=== PATIENT | female | born 1990 | race Hispanic/Latino ===

== ENCOUNTER 2016-08-02 22:17 | Inpatient (IN) ==
[2016-08-02] MEDS ORDERED: ZOFRAN IV PRN (22:24)
[2016-08-02] MEDS ORDERED: STADOL IV PRN ×2 (22:24)
[2016-08-02] MEDS ORDERED: AMBIEN PO PRN (22:24)
[2016-08-02] MEDS ORDERED: PEPCID IV PRN (22:24)
[2016-08-02] MEDS ORDERED: PEPCID PO PRN (22:24)
[2016-08-02] MEDS ORDERED: KEFZOL 1 GM/D5W 1 GM/50 ML IVPB IV PRN (22:24)
[2016-08-02] MEDS ORDERED: TYLENOL PO PRN (22:24)
[2016-08-02] MEDS ORDERED: BRETHINE SUBQ PRN (22:24)
[2016-08-02] MEDS: LR 1,000 ML IV ONE (23:50)
[2016-08-03] MEDS ORDERED: CYTOTEC VAG ONE
[2016-08-03 00:06] LABS: MANUAL DIFF NEEDED? NO
[2016-08-03 00:08] LABS: BASO% 0.2 % (0.0-0.8); EOS# 0.11 X1000 (0.0-0.7); EOS% 1.8 % (0.0-10.0); HEMATOCRIT 33.7 % (37.0-47.0); HEMOGLOBIN 11.4 g/dL (12.0-16.0); IMM GRAN# 0.02 X1000 (0.0-0.04); IMM GRAN% 0.3 % (0.0-0.5); LYMPH# 2.44 X1000 (1.2-3.4); LYMPH% 39.7 % (20.5-51.1); MCH 30.4 PG (27-31); MCHC 33.8 g/dL (33-37); MCV 89.9 FL (81-99); MONO# 0.41 X1000 (0.11-0.59); MONO% 6.7 % (1.7-9.3); MPV 10.3 FL (7.4-10.4); NEUT% 51.3 % (42.2-75.2); PLT 287 X1000 (130-400); RBC 3.75 XMIL (4.2-5.4)
[2016-08-03] MEDS: CYTOTEC VAG SCH ×3 (04:26→12:23)
[2016-08-03] MEDS: LR 1,000 ML IV ONE ×2 (06:32→13:34)
[2016-08-03] MEDS ORDERED: PITOCIN 30 UNITS/LR 30 UNITS/500 ML IV.SOLN IV SCH (08:00)
[2016-08-03] MEDS: STADOL IV PRN ×3 (10:15→14:56)
[2016-08-03] MEDS ORDERED: XYLOCAINE-MPF 1% ONE (15:26)
[2016-08-03] MEDS ORDERED: MINERAL OIL ONE (15:26)
[2016-08-03] MEDS ORDERED: NS 1,000 ML IV ONE (15:56)
[2016-08-03] MEDS ORDERED: D5 LR 1,000 ML IV SCH (15:56)
[2016-08-03] MEDS ORDERED: PITOCIN 20 UNITS/LR 20 UNITS/1,000 ML IV.SOLN ONE (17:07)
[2016-08-03] MEDS ORDERED: AMBIEN PO PRN (19:01)
[2016-08-03] MEDS ORDERED: PERI MEDS (DERMOPLAST/NUPERCAINAL/TUCKS) MISC PRN (19:01)
[2016-08-03] MEDS ORDERED: HYDROXYZINE PO PRN (19:01)
[2016-08-03] MEDS ORDERED: BENADRYL PO PRN (19:01)
[2016-08-03] MEDS ORDERED: PITOCIN 30 UNITS/LR 30 UNITS/500 ML IV.SOLN IV ONE (19:01)
[2016-08-03] MEDS ORDERED: HYDROXYZINE IM PRN (19:01)
[2016-08-03] MEDS ORDERED: MINERAL OIL PO PRN (19:01)
[2016-08-03] MEDS ORDERED: PITOCIN IM PRN (19:01)
[2016-08-03] MEDS ORDERED: XYLOCAINE-MPF 1% INJ PRN (19:01)
[2016-08-03] MEDS ORDERED: CYTOTEC PO PRN (19:01)
[2016-08-03] MEDS ORDERED: BENADRYL IV PRN (19:01)
[2016-08-03] MEDS ORDERED: PERCOCET-10 PO PRN (19:01)
[2016-08-03] MEDS ORDERED: PITOCIN 20 UNITS/LR 20 UNITS/1,000 ML IV.SOLN IV SCH (19:01)
[2016-08-03] MEDS: CLINDAMYCIN 900 MG/NS 900 MG/50 ML IVPB IV SCH (20:52)
[2016-08-03] MEDS: GENTAMICIN 80 MG/NS 80 MG/50 ML IVPB IV SCH (20:52)
[2016-08-03] MEDS: PERICOLACE PO SCH (20:53)
[2016-08-04] MEDS: MOTRIN PO PRN ×3 (00:36→16:53)
[2016-08-04] MEDS: PERCOCET-5 PO PRN ×3 (00:42→16:53)
[2016-08-04] MEDS: CLINDAMYCIN 900 MG/NS 900 MG/50 ML IVPB IV SCH ×2 (04:28→12:40)
[2016-08-04] MEDS: GENTAMICIN 80 MG/NS 80 MG/50 ML IVPB IV SCH ×2 (04:28→12:39)
[2016-08-04 06:08] LABS: MANUAL DIFF NEEDED? NO
[2016-08-04 06:34] LABS: BASO% 0.1 % (0.0-0.8); EOS# 0.07 X1000 (0.0-0.7); EOS% 0.7 % (0.0-10.0); HEMATOCRIT 25.2 % (37.0-47.0); HEMOGLOBIN 8.4 g/dL (12.0-16.0); IMM GRAN# 0.02 X1000 (0.0-0.04); IMM GRAN% 0.2 % (0.0-0.5); LYMPH# 2.78 X1000 (1.2-3.4); LYMPH% 26.2 % (20.5-51.1); MCH 29.8 PG (27-31); MCHC 33.3 g/dL (33-37); MCV 89.4 FL (81-99); MONO# 0.62 X1000 (0.11-0.59); MONO% 5.8 % (1.7-9.3); MPV 10.4 FL (7.4-10.4); PLT 283 X1000 (130-400); RBC 2.82 XMIL (4.2-5.4)
[2016-08-04] MEDS: PRECARE PO SCH (08:57)
[2016-08-04 12:27] LABS: HEPATITIS B SURFACE ANTIGEN SEE COMMENTS
[2016-08-04] MEDS: FERROUS SULFATE PO SCH ×2 (12:46→21:10)
--- NOTE | 2016-08-04 20:23 | OPERATIVE NOTE ---
PROCEDURE DATE: 08/03/2016 ADMISSION DIAGNOSIS: A 26-year-old, 5, para 4-0-0-4 at 37 weeks and 1 day with gestational diabetes and cholestasis of . DELIVERY DATE: 08/03/2016 DELIVERING PHYSICIAN: Dr. Brianda Mauro. ANESTHESIA: None. FINDINGS: A 7 pound 1 ounce male with Apgars 8 and 9. Retained placenta that was manually removed. COMPLICATIONS: None DELIVERING SUMMARY: This 26-year-old, 5 para 4-0-0-4 underwent induction of labor with subsequent spontaneous vaginal delivery at 37 weeks and 2 days. The was noted to have a nuchal cord x1 which was clamped and cut at the perineum. The was delivered atraumatically and placed upon the mother's abdomen with the pediatric team in attendance. Cord blood was then obtained. The placenta was then removed manually and was manually from the uterus. It was delivered intact. No lacerations were noted. Patient and were both stable in the delivery room. cc: MD ALVARO Moore
[2016-08-04] MEDS: PERICOLACE PO SCH (20:50)
--- NOTE | 2016-08-04 20:59 | OB/GYN PROGRESS NOTE ---
Progress Note OB - . Patient Problems: Current Active Problems Problem Status Onset Cholestasis during Acute Gestational diabetes Acute OB Progress Note: Vital Signs - 24 hr 08/03/16 21:15 08/03/16 22:15 08/03/16 23:15 Temperature 99.5 F Pulse Rate 102 H 86 89 Respiratory Rate 18 18 18 Blood Pressure 93/52 135/77 110/66 O2 Sat by Pulse Oximetry 99 99 99 08/04/16 00:00 08/04/16 04:00 08/04/16 08:00 Temperature 98.6 F 98.6 F 97.8 F Pulse Rate 104 H 77 87 Respiratory Rate 18 18 15 Blood Pressure 100/53 90/50 84/61 O2 Sat by Pulse Oximetry 99 99 100 08/04/16 12:00 08/04/16 16:00 08/04/16 20:48 Temperature 97.7 F 97.3 F L Pulse Rate 82 84 81 Respiratory Rate 16 16 18 Blood Pressure 92/59 106/54 98/48 O2 Sat by Pulse Oximetry 98 Laboratory Results - last 24 hr 08/02/16 08/04/16 08/04/16 23:50 05:10 06:34 WBC 10.60 RBC 2.82 L Hgb 8.4 L D Hct 25.2 L D MCV 89.4 MCH 29.8 MCHC 33.3 RDW Std Deviation 12.6 Plt Count 283 MPV 10.4 Immature Gran % (Auto) 0.2 Neut % (Auto) 67.0 Lymph % (Auto) 26.2 [place] % (Auto) 5.8 Eos % (Auto) 0.7 Baso % (Auto) 0.1 Immature Gran # (Auto) 0.02 Neut # (Auto) 7.10 H Lymph # (Auto) 2.78 [place] # (Auto) 0.62 H Eos # (Auto) 0.07 Baso # (Auto) 0.01 POC Glucose 93 D Hep Bs Antigen SEE COMMENTS Patient is without complaint. Ambulating and voiding without difficult. Tolerating diet. Reports minimal bleeding. Pain well controlled. . Exam Gen: NAD, alert Abd: soft, nontender, fundus firm and 1 finger breadth below umbilicus Pelvis: minimal lochia rubra Ext: no edema, nontender, Giorgi's- A/P: 26yo who is PPD#1 s/p with manual removal of placenta, iron deficiency anemia -continue routine care -encourage ambulation -continue PO pain meds -ferrous sulfate BID -discontinue gent/clinda after 3 doses completed -dispo: home in AM Brianda Mauro MD [employer]
[2016-08-05 07:38] VITALS: BP 99/48
[2016-08-05] MEDS: FERROUS SULFATE PO SCH (08:40)
[2016-08-05] MEDS: PRECARE PO SCH (08:40)
--- NOTE | 2016-09-22 17:18 | DISCHARGE SUMMARY ---
ADMISSION DATE: 08/02/2016 DISCHARGE DATE: 08/05/2016 PROCEDURES: Spontaneous vaginal delivery. ADMISSION DIAGNOSIS: A 26-year-old, -0-0-4 at 37 weeks and 1 day, with gestational diabetes and cholestasis of . DISCHARGE DIAGNOSIS: Status post spontaneous vaginal delivery of a 7 pound 1 ounce male with Apgars 8 and 9. DELIVERING PHYSICIAN: Dr. Brianda Mauro. HOSPITAL COURSE: This 26-year-old, -0-0-4 underwent induction of labor for cholestasis of with subsequent spontaneous vaginal delivery at 37 weeks and 2 days. The patient's hospital course was unremarkable and she was discharged on PPD#2. The patient's discharge glucose was 93 and hemoglobin and hematocrit was 8.4 and 25.2. DISCHARGE EXAM: General: No acute distress. Alert and oriented. Abdomen: Soft, nontender. Fundus firm and one fingerbreadth below the umbilicus. Pelvic: Minimal lochia rubra. Extremities: No edema. Nontender. Homans sign negative. DISCHARGE INSTRUCTIONS: Patient may continue regular diet. Patient to have nothing per vagina. DISCHARGE MEDICATIONS: Ferrous sulfate, ibuprofen and vitamins. FOLLOWUP INSTRUCTIONS: Patient to follow up with Dr. Mauro in 6 weeks. cc: Brianda Mauro MD [facility]
== END 2016-08-05 12:00 | disposition home or self-care (01) ==
LOC: P.LD 22:17 → P.WC 08-03 20:09
PROVIDERS: ADMIT Student in an Organized Health Care Education/Training Program; ATTEND Student in an Organized Health Care Education/Training Program